=== PATIENT | male | born 1935 | race Caucasian/White ===

== ENCOUNTER 2017-06-13 14:58 | Emergency (ER) | payer OTHER ==
[2017-06-13 15:12] VITALS: TEMP 97.5
[2017-06-13] MEDS ORDERED: LET GEL TOPICAL 1 EA SYR TP ONE (15:19)
[2017-06-13 15:34] VITALS: RESP 16
--- NOTE | 2017-06-13 15:44 | EDPHY ---
H & P Stated Complaint: Slipped on wet rocks;abrasions to R side of face, no LOC;on coumadin Time Seen by Provider: 06/13/17 15:26 HPI/ROS: CHIEF COMPLAINT: Fall HISTORY OF PRESENT ILLNESS: The patient is an 82-year-old man with a history of atrial fibrillation and stroke on Coumadin who comes to the emergency department with his after he tripped and fell outside of a restaurant. His states that he landed on his face. He has abrasions to the right side of his face and lips. No dental trauma. No loss of consciousness. No headache , no neck pain. No chest pain. He denies syncope. He does have some bruising to the right hand but denies pain. He has normal range of motion. REVIEW OF SYSTEMS: Constitutional: denies: chills, fever, recent illness, recent injury EENTM: denies: blurred vision, double vision, nose congestion Respiratory: denies: cough, shortness of breath Cardiac: denies: chest pain, irregular heart rate, lightheadedness, palpitations Gastrointestinal/Abdominal: denies: abdominal pain, diarrhea, nausea, vomiting, blood streaked stools Genitourinary: denies: dysuria, frequency, hematuria, pain Musculoskeletal: See HPI Skin: See HPI Neurological: denies: headache, numbness, paresthesia, tingling, dizziness, weakness Hematologic/Lymphatic: denies: blood clots, easy bleeding, easy bruising Immunologic/allergic: denies: HIV/AIDS, transplant EXAM: GENERAL: Well-appearing, well-nourished and in no acute distress. HEAD: Atraumatic, normocephalic. EYES: Pupils equal round and reactive to light, extraocular movements intact, sclera anicteric, conjunctiva are normal. ENT: No dental laxity, no intraoral lesions, no mandible tenderness. TMs normal, nares patent, oropharynx clear without exudates. Moist mucous membranes. NECK: Normal range of motion, supple without lymphadenopathy or JVD. LUNGS: Breath sounds clear to auscultation bilaterally and equal. No wheezes rales or rhonchi. HEART: Regular rate and rhythm without murmurs, rubs or gallops. ABDOMEN: Soft, nontender, normoactive bowel sounds. No guarding, no rebound. No masses appreciated. BACK: No CVA tenderness, no spinal tenderness, step-offs or deformities EXTREMITIES: Right hand with bruising over the MCP joint of the index finger. Normal range of motion and sensation. Normal pulses and capillary refill. NEUROLOGICAL: Cranial nerves II through XII grossly intact. Normal speech, normal gait. 5/5 strength, normal movement in all extremities, normal sensation PSYCH: Normal mood, normal affect. SKIN: Abrasions to the right side of face and lips. No lacerations. Source: Patient Exam Limitations: No limitations - Personal History Current Tetanus Diphtheria and Acellular Pertussis (TDAP): Yes - Medical/Surgical History Hx Asthma: No Hx Chronic Respiratory Disease: No Hx Diabetes: No Hx Cardiac Disease: Yes Hx Renal Disease: No Hx Cirrhosis: No Hx Alcoholism: No Hx HIV/AIDS: No Hx Splenectomy or Spleen Trauma: No Other PMH: BPH, afib,chf? surgery Aortic Valve Replacement, pacer. CVA - Family History Significant Family History: No pertinent family hx - Social History Smoking Status: Never smoked Alcohol Use: Sober Drug Use: None Constitutional: Initial Vital Signs Temperature (C) 36.4 C 06/13/17 15:05 Heart Rate 79 06/13/17 15:05 Respiratory Rate 18 06/13/17 15:05 Blood Pressure 120/84 H 06/13/17 15:05 O2 Sat (%) 94 06/13/17 15:05 O2 Delivery Mode Room Air Allergies/Adverse Reactions: No Known Allergies Allergy (Verified 06/13/17 15:09) Home Medications: Medication Instructions Recorded Aspirin [Aspirin 81mg (*)] 81 mg PO DAILY 03/18/15 Carvedilol [Coreg (*)] 6.25 mg PO BIDMEAL 03/18/15 Cyanocobalamin/FA/Pyridoxine 1 each PO BID 03/18/15 [Folbic] Donepezil HCl [Aricept 5 MG (*)] 10 mg PO HS 03/18/15 Finasteride [Proscar 5 MG (*)] 5 mg PO DAILY 03/18/15 Lisinopril [Zestril 2.5 mg (*)] 2.5 mg PO DAILY 03/18/15 Tamsulosin HCl [Flomax 0.4 MG (*)] 0.4 mg PO DAILY 03/18/15 Warfarin Sodium [Coumadin 2.5MG 2.5 mg PO MO 03/18/15 (*)] Warfarin Sodium [Coumadin 5MG (*)] 5 mg PO SUTUWETHFRSA 03/18/15 Furosemide [Lasix 40 MG (*)] 40 mg PO MWF@09 #0 tab 03/19/15 Spironolactone [Aldactone 25 MG 12.5 mg PO MWF@09 #0 tab 03/19/15 (*)] Medical Decision Making - Diagnostics Imaging Results: Imaging Impressions Hand X-Ray 06/13/17 15:35 Impression: Soft tissue swelling dorsal to the metacarpophalangeal joint region with no evidence for acute fracture or radiopaque foreign body. Other chronic findings as above. Head CT 06/13/17 15:35 Impression: 1. No acute fracture or intracranial hemorrhage. 2. 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 Findings discussed with Emergency Department physician, Carl Alcala on 2016 at 1609 hours. Imaging: Discussed imaging studies w/ insurance job titles Radiologist ED Course/Re-evaluation: We discussed the patient's CT and x-ray results. He is relieved. His abrasions have been cleaned and dressed. I will check his INR to confirm that it does not significantly elevated. His is happy with this plan and the eager to go home. Differential Diagnosis: Partial list of the Differential diagnosis considered include but were not limited to; abrasion, fracture, intracranial hemorrhage and although unlikely based on the history and physical exam, I also considered assault, cervical spine injury. I discussed these differential diagnoses and the plan with the patient as well as the usual and expected course. The patient understands that the diagnosis is provisional and that in medicine we are not always correct and that further workup is often warranted. Usual and customary warnings were given. All of the patient's questions were answered. The patient was instructed to return to the emergency department should the symptoms at all worsen or return, otherwise to followup with the physician as we discussed. - Data Points Laboratory Results: 06/13/17 16:30 PT 26.7 SEC H SEC (12.0-15.0) INR 2.44 H (0.83-1.16) APTT 33.5 SEC SEC (23.0-38.0) Medications Given: Discontinued Medications Tetracaine/Epinephrine/Lidocaine (Let Gel Topical) 1 ea TP EDNOW ONE Stop: 06/13/17 15:20 Last Admin: 06/13/17 15:28 Dose: 1 ea Departure - Departure Disposition: Home, Routine, Self-Care Clinical Impression: Abrasion, face w/o infection Contusion of hand, right Qualifiers: Encounter type: initial encounter Qualified Code(s): S60.221A - Contusion of right hand, initial encounter Condition: Fair Instructions: Abrasion (ED) Referrals: Akanksha Haywood MD [Primary Care Provider] - As per Instructions
[2017-06-13 16:35] VITALS: BP 120/74; PULSE 75; O2SAT 95
[2017-06-13 17:22] LABS: APTT 33.5 SEC (23.0-38.0); INR 2.44 (0.83-1.16); PROTIME(PATIENT) 26.7 SEC (12.0-15.0)
== END 2017-06-13 17:17 | disposition home or self-care (01) ==
DX: S00.81XA Abrasion of other part of head, initial encounter (principal); S60.221A Contusion of right hand, initial encounter; Z79.82 Long term (current) use of aspirin; Z79.01 Long term (current) use of anticoagulants; W01.0XXA Fall on same level from slipping, tripping and stumbling without subsequent striking against object, initial encounter; Y92.89 Other specified places as the place of occurrence of the external cause

== ENCOUNTER 2017-08-18 10:51 | Emergency (ER) | payer OTHER ==
[2017-08-18 11:08] VITALS: BP 141/94; PULSE 72; RESP 18; TEMP 98.2; O2SAT 92
--- NOTE | 2017-08-18 11:23 | EDPHY ---
General Narrative: CHIEF COMPLAINT: Found wandering the sidewalk asking for ride HISTORY OF PRESENT ILLNESS: Patient arrives by EMS with reports that he was wondering the sidewalks in [place] asking for a ride. He was disoriented but had no other complaints. He has no chest pain or shortness of breath. No headache. No neck pain. No fever. He arrives by EMS and is seen at time of arrival in no acute distress, resting comfortably. He does have a wrist plan on his right wrist with information regarding his Alzheimer dementia instructions to contact his . REVIEW OF SYSTEMS: Ten systems reviewed and are negative unless otherwise noted in the HPI PAST MEDICAL HISTORY: Alzheimer's dementia PAST SURGICAL HISTORY: Reviewed SOCIAL HISTORY: Lives at home with his spouse in [place]. FAMILY HISTORY: Noncontributory EXAMINATION General Appearance: Alert, no distress Head: normocephalic, atraumatic Eyes: Pupils equal and round, no conjunctival pallor or injection ENT, Mouth: Mucous membranes moist. Airway patent Neck: Normal inspection, supple, non-tender. Midline trachea Respiratory: Lungs are clear to auscultation. No wheeze, rhonchi or crackles Cardiovascular: Regular rate. Good signs of perfusion Gastrointestinal: Abdomen is soft nondistended Neurological: Alert to person. Disoriented to place and time. Patient recognizes his at bedside by name. Skin: Warm and dry, no rash Extremities: Nontender, no pedal edema Psychiatric: Mood and affect normal DIFFERENTIAL DIAGNOSES: Including but not limited to Alzheimer's dementia, baseline dementia, MDM: 11:20 a.m. Alzheimer's dementia without any acute concerns or complaints. The is now at bedside. She says that he wandered out of the house. He has an identification bracelet on him to notify emergency personnel that this has happened. She is here to take him home. He has no complaints of any kind. He is at his baseline neuro status. He has no signs of injury or trauma. He has no complaints of pain. He is stable in no acute distress. She will drive him home and watch him closely today. They will follow up with primary care physician. - History Smoking Status: Never smoked - Objective Vital Signs: Initial Vital Signs Temperature (C) 98.2 F 08/18/17 11:07 Heart Rate 72 08/18/17 11:07 Respiratory Rate 18 08/18/17 11:07 Blood Pressure 141/94 H 08/18/17 11:07 O2 Sat (%) 92 08/18/17 11:07 O2 Delivery Mode Room Air Allergies/Adverse Reactions: No Known Allergies Allergy (Verified 06/13/17 15:09) Home Medications: Medication Instructions Recorded Aspirin [Aspirin 81mg (*)] 81 mg PO DAILY 03/18/15 Carvedilol [Coreg (*)] 6.25 mg PO BIDMEAL 03/18/15 Cyanocobalamin/FA/Pyridoxine 1 each PO BID 03/18/15 [Folbic] Donepezil HCl [Aricept 5 MG (*)] 10 mg PO HS 03/18/15 Finasteride [Proscar 5 MG (*)] 5 mg PO DAILY 03/18/15 Lisinopril [Zestril 2.5 mg (*)] 2.5 mg PO DAILY 03/18/15 Tamsulosin HCl [Flomax 0.4 MG (*)] 0.4 mg PO DAILY 03/18/15 Warfarin Sodium [Coumadin 2.5MG 2.5 mg PO MO 03/18/15 (*)] Warfarin Sodium [Coumadin 5MG (*)] 5 mg PO SUTUWETHFRSA 03/18/15 Furosemide [Lasix 40 MG (*)] 40 mg PO MWF@09 #0 tab 03/19/15 Spironolactone [Aldactone 25 MG 12.5 mg PO MWF@09 #0 tab 03/19/15 (*)] Departure - Departure Disposition: Home, Routine, Self-Care Clinical Impression: Alzheimer's dementia without behavioral disturbance Qualifiers: Alzheimer's disease onset: unspecified onset Qualified Code(s): G30.9 - Alzheimer's disease, unspecified Condition: Good Instructions: Dementia (ED) Additional Instructions: 1. Follow up with primary care physician 2. Stay in close contact with spouse Referrals: Patient,NotPresent [Unknown] - As per Instructions Akanksha Haywood MD [Primary Care Provider] - As per Instructions
== END 2017-08-18 11:39 | disposition home or self-care (01) ==
LOC: EDUNIT#
DX: G30.9 Alzheimer's disease, unspecified (principal); Z79.01 Long term (current) use of anticoagulants; Z79.82 Long term (current) use of aspirin